=== PATIENT | female | born 1945 | race Caucasian/White ===

== ENCOUNTER 2016-06-17 12:54 | Day surgery (SDC) | payer MEDICARE ==
[2016-06-13 11:52] VITALS: BMI 22.3
[~2016-06-17 12:54] MED LIST: HEPARIN SODIUM,PORCINE 5,000 UNIT/ML 1 ML VIAL SQ ONE; Pre Op ABX Message 1 EACH MISC MISCELLANE ONE
[2016-06-17] MEDS ORDERED: ALPRAZolam 0.25 MG TAB PO PRN (13:05)
[2016-06-17] MEDS ORDERED: HYDROmorphone 1 MG/ML 1 ML SYRINGE IVP PRN (13:05)
[2016-06-17] MEDS ORDERED: DEXAMETHASONE SOD PHOSPHATE 10 MG/ML 1 ML VIAL IV ONE (13:05)
[2016-06-17] MEDS ORDERED: LACTATED RINGERS 1,000 ML IV ONE ×2 (13:15→20:39)
[2016-06-17] MEDS: ONDANSETRON 4 MG/2 ML VIAL IVP ONE ×2 (13:48→20:24)
[2016-06-17 13:52] VITALS: RESP 16
[2016-06-17] MEDS ORDERED: LIDOCAINE 1% INJ 10MG/ML (20 ML MDV) SQ ONE (14:14)
[2016-06-17] MEDS ORDERED: SODIUM BICARB 4% 5 ML VIAL (0.48 MEQ/ML) MISCELLANE ONE (14:14)
[2016-06-17] MEDS ORDERED: METHYLENE BLUE 10 MG/ML 1 ML VIAL IV ONE (14:40)
--- NOTE | 2016-06-17 15:24 | NM ---
EXAMINATION TYPE: NM sentinel node injection DATE OF EXAM: 06/17/2016 2:49 PM COMPARISON: Mammogram 06 June 2016 HISTORY: Left breast cancer TECHNIQUE AND FINDINGS: The procedure of sentinel lymph node injection was explained to the patient. The benefits, alternatives, and risks were discussed. An informed consent was then obtained. Overlying skin is cleaned with sterile alcohol. Lidocaine buffered with bicarbonate was used as anes thetic into the skin and subcutaneous tissue surrounding the nipple. Following this, 535 uCi Tc 99m Filtered Sulfur Colloid was injected into 4 equivalent doses at 12, 3, 6, and 9:00 position surroundi ng the left nipple intradermally. The injection sites were massaged by nuclear equipment research engineer for 10 minutes after injection. T he patient tolerated the procedure well without any immediate complication. The patient was kept in the radiology department for short stay after the procedure and then taken to surgery for surgical pr ocedure what is presumed intraoperative gamma probe will be used for sentinel lymph node detection. IMPRESSION: Left breast radiotracer injection for sentinel node localization as above.
[2016-06-17] MEDS ORDERED: HEPARIN SODIUM,PORCINE 5,000 UNIT/ML 1 ML VIAL SQ ONE (16:53)
[2016-06-17] MEDS ORDERED: PROPOFOL 10 MG/ML 20 ML VIAL IV ONE (17:24)
[2016-06-17] MEDS ORDERED: LIDOCAINE 1% INJ 10MG/ML (20 ML MDV) ONE (17:24)
[2016-06-17] MEDS ORDERED: PHENYLEPHRINE-0.9% NACL SYG 1 MG/10 ML SYRINGE ONE (17:24)
[2016-06-17] MEDS ORDERED: MIDAZOLAM 2 MG/2 ML VIAL ONE (17:24)
[2016-06-17] MEDS ORDERED: ePHEDrine 50 MG/ML 1 ML AMP ONE (17:24)
[2016-06-17] MEDS ORDERED: SUCCINYLCHOLINE CHLORIDE 100 MG/5 ML SYR IV ONE (17:24)
[2016-06-17] MEDS ORDERED: HYDROmorphone (PF) 1 MG/ML ONE (17:24)
[2016-06-17] MEDS ORDERED: fentaNYL (PF) 50 MCG/ML 2 ML AMP ONE (17:24)
[2016-06-17] MEDS ORDERED: METHYLENE BLUE 10 MG/ML 1 ML VIAL INJ ONE (18:04)
--- NOTE | 2016-06-17 19:40 | P.OP ---
Date of Procedure: 06/17/16 Preoperative Diagnosis: Left breast cancer Postoperative Diagnosis: Same Procedure(s) Performed: Lymphatic mapping using methylene blue, left breast lumpectomy with interrogation using margin probe, placement of Bhavya device, left breast sentinel node biopsy of the axilla Anesthesia: RORY Surgeon: Kika Lilly Estimated Blood Loss (ml): 10 IV fluids (ml): 500 Pathology: other (Left breast tissue, left axillary node) Condition: stable Disposition: PACU Indications for Procedure: Left breast cancer Operative Findings: Dense left breast tissue Description of Procedure: Patient was taken to the operating room and following induction of general anesthesia the left breast was prepped and draped in a sterile fashion. Prior to this 5 mL of half-strength methylene blue were injected in the periareolar area and the breast was massaged. The area for lumpectomy was initially approached. Incision was made and carried down to the hook of the wire and surrounding tissue was excised. Specimen radiograph did not reveal the clip and additional tissue was obtained. Following obtaining additional tissue the clip was noted in the specimen. Additionally interrogation of the specimen revealed 1 positive margin laterally will be excision was performed. This was done via margin probe. Following this after we were assured that hemostasis was attained the cavity of the left breast was reapproximated using 3-0 Vicryl suture being careful to maintain the area where the tumor had been and in the tumor bed titanium clips were placed. Additionally a Bhavya balloon catheter was placed. 15 mL of fluid was placed in the Bhavya device secured in the cavity. The anterior tissues were closed with a balloon catheter. The catheter was placed through a separate superior-lateral incision. The axilla was interrogated using the probe. The area of highest activity was chosen to make our incision. Incision was made carried into the axilla. Blue radioactive lymph node was identified. This was removed 10 second count was 18, 904. The second sentinel lymph node was identified and the 10 second count on this node was 2500. Background 10 second count was 14. The sentinel lymph node was sent for evaluation and was noted to be negative on frozen section for cancer. The patient tolerated the procedure in stable condition. All instrument and sponge counts were correct at the end of the case.
--- NOTE | 2016-06-17 19:41 | P.DS ---
Providers Attending physician: Kika Lilly Primary care physician: Carine Peña Plan - Discharge Summary New Discharge Prescriptions: Cephalexin [Keflex] 250 mg PO Q6HR #40 cap HYDROcodone/APAP 5-325MG [[place] 5] 1 - 2 each PO Q4H PRN #20 tab PRN Reason: Pain Discharge Medication List Bimatoprost [Lumigan .01% Ophth Soln] 1 drop BOTH EYES HS 06/13/16 [History] Dorzolamide 2% [Trusopt 2%] 1 drops BOTH EYES BID 06/13/16 [History] FLUoxetine HCL [PROzac] 10 mg PO HS 06/13/16 [History] Lisinopril [Zestril] 10 mg PO QAM 06/13/16 [History] Simvastatin [Zocor] 10 mg PO HS 06/13/16 [History] Cephalexin [Keflex] 250 mg PO Q6HR #40 cap 06/17/16 [Rx] HYDROcodone/APAP 5-325MG [[place] 5] 1 - 2 each PO Q4H PRN #20 tab 06/17/16 [Rx]
--- NOTE | 2016-06-17 19:43 | P.DS ---
Providers Attending physician: Kika Lilly Primary care physician: Carine Peña Plan - Discharge Summary New Discharge Prescriptions: Cephalexin [Keflex] 250 mg PO Q6HR #40 cap HYDROcodone/APAP 5-325MG [[place] 5] 1 - 2 each PO Q4H PRN #20 tab PRN Reason: Pain Discharge Medication List Bimatoprost [Lumigan .01% Ophth Soln] 1 drop BOTH EYES HS 06/13/16 [History] Dorzolamide 2% [Trusopt 2%] 1 drops BOTH EYES BID 06/13/16 [History] FLUoxetine HCL [PROzac] 10 mg PO HS 06/13/16 [History] Lisinopril [Zestril] 10 mg PO QAM 06/13/16 [History] Simvastatin [Zocor] 10 mg PO HS 06/13/16 [History] Cephalexin [Keflex] 250 mg PO Q6HR #40 cap 06/17/16 [Rx] HYDROcodone/APAP 5-325MG [[place] 5] 1 - 2 each PO Q4H PRN #20 tab 06/17/16 [Rx] Follow up Appointment(s)/Referral(s): Kika Lilly MD [STAFF PHYSICIAN] - 3 Days Activity/Diet/Wound Care/Special Instructions: The catheter dressing clean and dry wear Bra at all times Discharge Disposition: HOME SELF-CARE
[2016-06-17 19:58] VITALS: TEMP 98.5
[2016-06-17] MEDS ORDERED: HYDROcodone/APAP 5-325MG 1 EACH TAB PO ONE (21:02)
[2016-06-17 21:28] VITALS: BP 117/59; PULSE 94
--- NOTE | 2016-06-18 09:23 | MM ---
EXAMINATION TYPE: MG pre op needle loc LT, MG surgical specimen LT DATE OF EXAM: 06/17/2016 3:03 PM COMPARISON: Prior mammogram 06 June 2016 CLINICAL HISTORY: Abnormal mammogram, left breast cancer TECHNIQUE: Needle localization with wire placement and surgical excision of area of concern in the left breast. FINDINGS: The procedure of needle localization with wire placement and than surgical excision was explained to the patient. Benefits, alternatives, and risks were discussed. An informed consent was then obtained. The overlying skin was prepped and draped in usual sterile fashion. Lidocaine buffered with bicarbonate was used as anesthetic into the skin and subcutaneous tissue up to the level of area of concern. 20-gauge needle placed under mammographic guidance. Subsequent 90 degrees mammogram show the needle to be in satisfactory position relative to the targeted area. At this point, wire was placed and the needle was withdrawn. The wire was fixed to patient's skin. Images were marked for surgeon. The patient tolerated the procedure well without any immediate complication. The patient was kept in the radiology department for short stay after the procedure and then taken to surgery for surgical excision. Metallic ribbon clip and wire are identified in specimen mammogram. The patient was kept in hospital for short stay after the procedure and then discharged home in stable condition. IMPRESSION: Successful, uncomplicated needle localization with wire placement and surgical excision of breast mass with clip in the left breast, full pathology results to follow. Pathology Results: Malignant A. SENTINEL LYMPH NODE #1, BIOPSY: LYMPH NODE NEGATIVE FOR METASTATIC MALIGNANCY. CK7 AND NEDIA IMMUNOPEROXIDASE STAINS ARE CONFIRMATORY (CONTROLS APPROPRIATE). B. SENTINEL LYMPH NODE #2, BIOPSY: TWO LYMPH NODES NEGATIVE FOR METASTATIC MALIGNANCY. CK7 AND NEIDA IMMUNOPEROXIDASE STAINS PERFORMED ON BLOCKS B1 AND B2 ARE CONFIRMATORY (CONTROLS APPROPRIATE). C. BREAST, LEFT, LUMPECTOMY: EXTENSIVE LOBULAR NEOPLASIA (LCIS AND ALH_. FIBROCYSTIC CHANGES AND AN INTRADUCTAL PAPILLOMA. NO INVASIVE MALIGNANCY IDENTIFIED. D. 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 EXTENSIVE LOBULAR NEOPLASIA (ALH/LCIS). SEE SURGICAL PATHOLOGY CANCER CASE SUMMARY AND COMMENT. Recommendation Appropriate oncologic management. MTDD
== END 2016-06-17 21:46 | disposition home or self-care (01) ==
LOC: OR 12:54
PROVIDERS: ATTEND Surgery
DX: C50.912 Malignant neoplasm of unspecified site of left female breast (principal); R92.8 Other abnormal and inconclusive findings on diagnostic imaging of breast; E78.5 Hyperlipidemia, unspecified; I10 Essential (primary) hypertension; Z79.1 Long term (current) use of non-steroidal anti-inflammatories (NSAID); Z79.899 Other long term (current) drug therapy; Z88.1 Allergy status to other antibiotic agents; Z88.8 Allergy status to other drugs, medicaments and biological substances; Z87.891 Personal history of nicotine dependence
CPT/HCPCS: 19301; 19297; 38525; 88342; 88331; 88332; 88307; 88341; 76098; 19281; 38792; A9541; J2250; J1644; J1100; J2405; J2001; Q9968; J3010; J1170; J2370; J0330; J2704

== ENCOUNTER 2016-07-08 07:18 | Day surgery (SDC) | payer MEDICARE ==
[2016-07-03 15:32] VITALS: BMI 22.1
[~2016-07-08 07:18] MED LIST changes: +LACTATED RINGERS 1,000 ML IV SCH; +MIDAZOLAM 2 MG/2 ML VIAL IV PRN; +ONDANSETRON 4 MG/2 ML VIAL IVP ONE
[2016-07-08] MEDS ORDERED: HEPARIN SODIUM,PORCINE 5,000 UNIT/ML 1 ML VIAL SQ ONE (08:13)
[2016-07-08] MEDS ORDERED: LIDOCAINE 1% 20 ML VIAL (10MG/ML) FOR IV START INTRADERMA ONE (08:19)
[2016-07-08] MEDS ORDERED: MIDAZOLAM 2 MG/2 ML VIAL ONE (08:42)
[2016-07-08] MEDS ORDERED: LIDOCAINE 1% INJ 10MG/ML (20 ML MDV) ONE (08:42)
[2016-07-08] MEDS ORDERED: VECURONIUM 10 MG VIAL IV ONE (08:42)
[2016-07-08] MEDS ORDERED: NEOSTIGMINE 1 MG/ML 10 ML VIAL ONE (08:42)
[2016-07-08] MEDS ORDERED: SUCCINYLCHOLINE CHLORIDE 100 MG/5 ML SYR IV ONE (08:42)
[2016-07-08] MEDS ORDERED: SODIUM CHLORIDE 0.9% 50 ML with ceFAZolin 2,000 MG IV ONE ×2 (08:42)
[2016-07-08] MEDS ORDERED: GLYCOPYRROLATE 0.2 MG/ML 2 ML VIAL ONE (08:42)
[2016-07-08] MEDS ORDERED: PROPOFOL 10 MG/ML 20 ML VIAL IV ONE (08:42)
[2016-07-08] MEDS ORDERED: HYDROmorphone (PF) 1 MG/ML ONE (08:42)
[2016-07-08] MEDS ORDERED: ePHEDrine 50 MG/ML 1 ML AMP ONE (08:42)
[2016-07-08] MEDS ORDERED: fentaNYL (PF) 50 MCG/ML 2 ML AMP ONE (08:42)
[2016-07-08] MEDS ORDERED: LACTATED RINGERS 1,000 ML IV ONE ×2 (09:30→11:23)
[2016-07-08] MEDS ORDERED: NALOXONE 0.4 MG/ML 1 ML VIAL IV PRN (10:26)
[2016-07-08] MEDS ORDERED: ONDANSETRON 4 MG/2 ML VIAL IVP PRN (10:26)
--- NOTE | 2016-07-08 10:26 | P.OP ---
Date of Procedure: 07/08/16 Preoperative Diagnosis: Left breast multifocal disease, breast cancer Postoperative Diagnosis: Same Procedure(s) Performed: Bilateral mastectomy with immediate reconstruction Anesthesia: RORY Surgeon: Kika Lilly Estimated Blood Loss (ml): 20 IV fluids (ml): 1,400 Pathology: other (Bilateral breast) Condition: stable Disposition: PACU Indications for Procedure: Left breast multifocal invasive breast cancer Operative Findings: Bilateral dense breast Description of Procedure: Patient was taken to the operating room and following induction of general anesthesia the right breast was approached initially. A circumareolar incision was made and carried down through the skin and subcutaneous tissue. Circumferential skin flaps were developed. This was performed using the electrocautery device. The LigaSure was utilized as well as necessary to ligate larger vessels. This was carried down to the pectoralis major muscle and laterally down to the axillary contents. After this had been accomplished and we were assured that hemostasis was attained the breast was removed from medial to lateral using the electrocautery device. Any larger perforators were divided using the Harmonic scalpel. Following this the wound was well irrigated. After w were assured hemostasis was attained a pack was placed and the left breast was approached. A circumareolar incision was made and carried down through the skin to the subcutaneous tissue. Again circumferential skin flaps were developed. Hemostasis was attained using electrocautery device as well as the Harmonic scalpel. Dissection was carried down to the pectoralis major muscle and the anterior chest wall. Laterally it was carried to the axilla. After the flaps were developed the breast was removed from medial to lateral being careful to maintain hemostasis using the Harmonic scalpel for any perforators of concern on the area of the chest wall. Dissection was performed to the area of the axilla. After the breast was removed the wound was well irrigated. After we were assured that hemostasis was attained plastic surgery was called in for reconstruction. The specimens were painted appropriately marking there margins. All instrument and sponge counts were correct at the end of the case.
[2016-07-08] MEDS: HYDROmorphone 1 MG/ML 1 ML SYRINGE IVP PRN ×2 (12:30→14:07)
[2016-07-08] MEDS: HYDROmorphone 1 MG/ML 1 ML SYRINGE IV PRN ×2 (17:44→20:45)
[2016-07-08] MEDS: ceFAZolin 1,000 MG in DEXTROSE/WATER 1 50ML.BAG IVPB SCH (18:59)
[2016-07-08] MEDS: TIMOLOL BOTH EYES SCH (19:03)
[2016-07-08] MEDS: LUMIGAN 0.01% BOTH EYES SCH (19:03)
[2016-07-08] MEDS: DORZOLAMIDE BOTH EYES SCH (19:03)
[2016-07-08] MEDS: HEPARIN SODIUM,PORCINE 5,000 UNIT/ML 1 ML VIAL SQ SCH (20:57)
[2016-07-08] MEDS: ATORVASTATIN 10 MG TAB PO SCH (20:59)
[2016-07-08] MEDS ORDERED: DORZOLAMIDE HCL 2% DROPS 10 ML BTL BOTH EYES SCH (21:00)
[2016-07-08] MEDS ORDERED: LATANOPROST 0.005% OPHTH DROPS 2.5 ML BTL BOTH EYES SCH (21:00)
[2016-07-08] MEDS: HYDROcodone/APAP 5-325MG 1 EACH TAB PO PRN (21:08)
[2016-07-09] MEDS: ceFAZolin 1,000 MG in DEXTROSE/WATER 1 50ML.BAG IVPB SCH ×5 (00:10→23:49)
[2016-07-09] MEDS: FLUoxetine HCL 10 MG CAP PO SCH ×2 (00:10→21:38)
[2016-07-09] MEDS: HYDROmorphone 1 MG/ML 1 ML SYRINGE IV PRN ×2 (00:23→05:01)
[2016-07-09] MEDS: HYDROcodone/APAP 5-325MG 1 EACH TAB PO PRN ×2 (01:06→08:16)
--- NOTE | 2016-07-09 06:54 | OP ---
DATE OF SERVICE: 07/08/2016 SURGEON: KATARINA OBRIEN MD SHOT HOLE SHOOTER: PREOPERATIVE DIAGNOSES: 1. Acquired loss right and left breast. 2. Left breast cancer. POSTOPERATIVE DIAGNOSES: 1. Acquired loss right and left breast. 2. Left breast cancer. OPERATION: 1. Immediate reconstruction, right breast following mastectomy with insertion of tissue taper printed circuit layout and subsequent outpatient expansion. 2. Immediate reconstruction of left breast following mastectomy with insertion of tissue taper printed circuit layout and subsequent outpatient expansion. 3. Implantation of reconstructive graft for left and right breast reconstruction. ANESTHESIA: ESTIMATED BLOOD LOSS: SPECIMENS REMOVED: COMPLICATIONS: OPERATIVE FINDINGS: OPERATIVE INDICATIONS: The patient is a 70-year-old female with multifocal left breast cancer to undergo bilateral simple mastectomy. The patient initially underwent lumpectomy margins were is not clear at the time she did undergo sentinel node excision which were negative for cancer. She has decided to proceed with bilateral mastectomy and immediate reconstruction. She was referred to my care for breast reconstructive surgery and understands her options and potential risks and complications associated with today's surgery as well as the fact that future surgery will be required to complete the reconstruction. She has requested I perform the surgery. OPERATIVE PROCEDURE SUMMARY: The patient was transported to the operating room where she was placed in the supine position. Following induction of general endotracheal anesthesia, the patient was prepped and draped in the usual fashion. All surgery performed under loupe magnification. Dr. Lilly and her surgical team proceeded with the right and left simple mastectomy procedures. Once this was completed, I was contacted to come to the operating room. The patient was in supine position. All sponge and needle counts from the prior procedure were correct. New instruments were obtained. The patient's left open mastectomy wound was slightly larger than the right as a larger area of the tissue was excised for the circumareolar mastectomy due to her prior surgery. Otherwise conditions appear the same on both sides. There was no active bleeding. Both pectoralis major muscles appeared healthy. Beginning on the left side, the pectoralis major muscle was identified where it joined the chest wall laterally with areolar connective tissue divided with cauterization allowing entry into the potential plane between the pectoralis major and minor muscles, which was bluntly developed. Medial attachment fibers of the pectoralis major muscle to ribs were released with cautery but not sternal. Inferiorly all pectoralis major muscle fiber attachments to the ribs were released to obtain sufficient submuscular coverage required recruitment of additional muscle tissue. Inferior medially, rectus abdominis muscle and fascia, inferior laterally external abdominal oblique muscle and fascia, and laterally serratus anterior muscle and fascia were all elevated with cauterization through this incision. Once a sufficient size submuscular reconstructive pocket was created, irrigation was performed. Hemostasis was noted to be excellent. The site was packed open with moist laparotomy pads. Attention was turned towards the right side, again identifying the pectoralis major muscle where it joined the chest wall on the right lateral aspect. Loose areolar connective tissue divided with cautery allowing entry into the potential plane between the pectoralis major and minor muscles. This potential plane was bluntly dissected. Medial attachment fibers of the pectoralis major muscle to ribs were released with cautery but not sternal attachments. Inferiorly all rib attachments of the pectoralis major muscle were released again for a sufficient submuscular coverage of the taper printed circuit layout. Required recruitment of additional muscle tissue, inferior medially rectus abdominis muscle and fascia, inferolaterally external abdominal oblique muscle and fascia, and laterally serratus anterior muscle and fascia were all elevated until reaching a sufficient size submuscular pocket in symmetrical fashion to the left side. Irrigation was performed. Hemostasis was excellent. Both cavities were closely inspected. Minor adjustments made for symmetry purposes. Measurements were obtained. Gloves now changed. The left-sided tissue taper printed circuit layout opened onto the field first from the [employer], reference # [id number] and serial #[id number]. The taper printed circuit layout was only handled by the surgeon. After irrigating with saline, all air was removed from the taper printed circuit layout, and 50 mL of 0.9 normal saline instilled. It was inserted in the reconstructive cavity. Proper orientation assured under direct vision. The right-sided taper printed circuit layout now opened on the field. Again, same reference number. The serial number for the right-sided device was [id number]. Again the taper printed circuit layout was only handled by the surgeon. After it was irrigated with saline, all air was removed and 50 mL of 0.9 normal saline instilled. It was inserted in the reconstructive submuscular pocket created. Orientation assured under direct vision. The placements appeared symmetrical. The muscle tissue could not be directly approximated over either taper printed circuit layout without significant tension. Therefore, SurgiMend reconstructive graft measuring 10 x 15 cm thin and fenestrated was opened on the field. The SurgiMend once revitalized with room temperature saline was divided in 2 equal portions and placed deep to the muscle flap tissue on the right and left sides spanning the area where the muscle flap could not be directly approximated. The muscle flap and SurgiMend were then inset into each other using interrupted 3-0 Vicryl sutures. Complete coverage of each taper printed circuit layout was now obtained. Irrigation was performed. Hemostasis remained excellent. Adalid-Montero drains 19 round were now inserted into the surgical field in right and left side brought through separate stab incisions and right and left anterolateral chest wall sutured in place with 2-0 Prolene. Drains were cut to appropriate length. The mastectomy circumareolar incisions were now closed in a pursestring fashion using deep dermal 2-0 Prolene pursestring followed by finer approximation in the deep dermis using inverted, interrupted 4-0 Monocryl and then completing the skin closure with interrupted rd. Drains were connected to closed bulb suction and patent. The patient's surgical field was cleansed with saline and dried. Postoperative bandages placed using 4 x 4's, secured with ( ) Medipore tape. She was then extubated in the operating room and transferred to the recovery room in good condition with stable vital signs. There were no complications.
[2016-07-09] MEDS: TIMOLOL BOTH EYES SCH ×2 (08:14→21:36)
[2016-07-09] MEDS: DORZOLAMIDE BOTH EYES SCH ×2 (08:14→21:36)
[2016-07-09] MEDS: PANTOPRAZOLE 40 MG/10 ML VIAL IV SCH (08:24)
[2016-07-09] MEDS: HEPARIN SODIUM,PORCINE 5,000 UNIT/ML 1 ML VIAL SQ SCH ×2 (08:28→21:36)
[2016-07-09] MEDS: LISINOPRIL 10 MG TAB PO SCH (09:00)
--- NOTE | 2016-07-09 10:32 | CONS ---
DATE OF CONSULTATION: 07/08/2016 REASON FOR CONSULTATION: Medical management requested by Dr. Rosie Lilly. CONSULTATION: This is a 70-year-old patient of Dr. Carine Peña. Patient was found to have normal mammogram and more details in Dr. oRsie Cano's notes. Patient underwent a bilateral mastectomy. Patient has some pain at operative site. Patient's chronic medical conditions include hyperlipidemia, hypertension, anxiety. Post procedure, lying in bed. No nausea. Did tolerate her meals. REVIEW OF SYSTEMS: CONSTITUTIONAL: None. HEENT: None. RESPIRATORY: None. CARDIOVASCULAR: None. GASTROINTESTINAL: None. GENITOURINARY: None. MUSCULOSKELETAL: None. DERMATOLOGICAL: Some pain at operative site. LYMPHATICS: None. PSYCHIATRY: Anxiety. NEUROLOGICAL: None. Past history of breast cancer, hyperlipidemia, hypertension, glaucoma. PAST SURGICAL HISTORY: Bilateral cataract, abdominoplasty, left breast lumpectomy with a VICTORIA device insertion, right knee scope. Past psych history of anxiety. SOCIAL HISTORY: The patient does not smoke. Alcohol occasionally. . Family history of dementia. HOME MEDICATIONS: 1. Lisinopril 10 mg a day. 2. [place] 5, 1 to 2 tablets q.4 p.r.n. 3. Prozac 10 mg p.o. q.h.s. 4. Trusopt 2% 1 drop to both eyes b.i.d. 5. Lumigan 0.01% 1 drop to both eyes q.h.s. 6. Zocor 10 mg q.h.s. ALLERGIES: ERYTHROMYCIN. On examination, temperature 97.6, pulse 80, respirations 16, blood pressure 124/86, pulse ox 98% on room air. GENERAL APPEARANCE: Elderly lady lying in bed, not in distress. EYES: Pupils equal. Conjunctivae normal. HEENT: Oral cavity normal. NECK: JVD not raised. Mass not palpable. RESPIRATORY: Lungs: Fair air entry. CARDIOVASCULAR: First and second sounds normal. No edema. ABDOMEN: Soft, nontender. Liver and spleen not palpable. LYMPHATIC: No lymph nodes palpable in neck or axillae. PSYCHIATRIC: Alert and oriented x3. Mood is anxious-appearing. NEUROLOGICAL: Pupils equal. Cranial nerves grossly intact. Power and sensation grossly intact. INVESTIGATIONS: No blood work. ASSESSMENT: 1. Bilateral mastectomy for breast cancer. 2. Hyperlipidemia. 3. Essential hypertension. 4. Anxiety, not otherwise specified. PLAN: The patient has Venodyne boots for DVT prophylaxis. The patient's Zestril, Prozac, eye drops, Zocor will be resumed. Pain control per Dr. Rosie Lilly. Care was discussed with the patient. Thank you, Dr. Rosie Lilly.
--- NOTE | 2016-07-09 11:53 | P.PN ---
Subjective 70-year-old female being seen with the surgical service. Patient is postop done on July 08 bilateral mastectomy with tissue expanders placed for left breast cancer. Patient underwent the implantation of reconstructive grafts for the left and right breast reconstruction secondary to the left breast cancer. This morning patient has bilateral drains and right and left breasts. The right breast scant amount of drainage noted from the Adalid-Montero drain. The left breast proximally 30 mL noted in the bulb. The surgeon did remove the surgical dressing at the bedside. No redness noted suture line well approximated. Patient is experiencing slight surgical tenderness. Patient states that she was given IV pain medication made patient nauseated dizzy lightheaded. Patient states she cannot tolerate pain medication plan Tylenol usually is effective for pain control. Did note the systolic blood pressure at 4:00 in the morning 93/56. Recheck at 9 this morning 102/63. Patient's home dose of lisinopril 10 mg daily has been held with parameters to continue to hold for systolic blood pressures less than 110. Spouse at bedside surgeon did answer questions with the spouse and the patient discuss the plan of care Objective - Vital Signs Vital signs: Vital Signs Temp 97.9 F 07/09/16 08:55 Pulse 77 07/09/16 08:55 Resp 20 07/09/16 08:55 BP 102/63 07/09/16 08:55 Pulse Ox 97 07/09/16 08:55 Intake & Output 07/08/16 07/09/16 07/09/16 18:59 06:59 18:59 Intake Total 2750 240 Output Total 400 80 Balance 2350 160 Intake: IV 2750 Oral 240 Output: Drainage 90 80 LEFT FARAZ DRAIN 40 50 R FARAZ DRAIN 50 30 Urine 200 Estimated Blood Loss 110 Other: # Emeses 1 - Exam GENERAL APPEARANCE: 70-year-old female patient is alert, oriented, in no acute distress. Pleasant cooperative resting in bed denying any dizziness or lightheadedness patient reports not ready to be discharged patient had a large emesis this morning still feeling queasy with generalized fatigue VITAL SIGNS: Reviewed HEENT: Head is normocephalic and atraumatic. Pupils are equal and reactive. The nares are patent. Oropharynx is clear without lesions. Chest bilateral dressings at the mastectomy site dry no redness at the surgical sites. Bilateral Adalid-Montero drains in place NECK: Supple without lymphadenopathy. Traches midline. HEART: S1, S2. Regular rate and rhythm. No murmur noted denying chest pain LUNGS: No crackles or wheezes are heard. On room air sats are 97% ABDOMEN: Soft, nontender, nondistended with good bowel sounds. No peritoneal signs. No palpable organomegaly or masses. Reports a sensation of nausea no further active emesis EXTREMITIES: Normal skin color and turgor. No cyanosis, rash, ulceration, clubbing or edema. Radial pedal pulses are 2/4 bilaterally. NEUROLOGICAL: No focal deficits. Strength and sensation are grossly intact. Assessment and Plan Plan: Impression Status post June bilateral mastectomy for left breast cancer Anxiety disorder nonspecified Hyperlipidemia Hypertension essential controlled Plan Continue postop surgical care Monitor blood pressure address as indicated Continue IV hydration stop IV pain medication secondary to a side affect of nausea with an emesis after administration of IV pain meds Use plain Tylenol for pain control Restart home meds as appropriate Antiemetics as ordered Casmisole to be ordered and applied Prepped for probable discharge in the next 24 hours The above dictated assessment and findings were discussed with Dr. Kika Cano. Impression and the plan of care have been dictated as directed. Donita Silva nurse practitioner acting as a scribe for Dr. Chawla
[2016-07-09] MEDS: ACETAMINOPHEN TAB 325 MG TAB PO PRN ×3 (12:12→23:49)
[2016-07-09] MEDS ORDERED: traMADol 50 MG TAB PO PRN (13:23)
[2016-07-09] MEDS: DEXTROSE 5%-0.45% NACL 1,000 ML IV SCH ×2 (14:50→16:15)
--- NOTE | 2016-07-09 17:18 | PN ---
DATE OF SERVICE: 07/09/2016 PRESENTING COMPLAINT: Bilateral mastectomy. INTERVAL HISTORY: Patient is status post bilateral mastectomy. Did vomit once today. Feeling weak. Overall feeling better. Otherwise, she states pain is better controlled. No chest pain or shortness of breath. Review of systems done for constitutional, cardiovascular, GI, pulmonary; relevant findings as above. Current medications are reviewed. On examination, temperature 97.9, pulse 77, respirations 20, blood pressure 102/63, pulse ox 97% on room air. GENERAL APPEARANCE: Lying in bed, comfortable. EYES: Pupils equal. Conjunctivae normal. NECK: JVD not raised. Mass not palpable. RESPIRATORY: Effort normal. Lungs are clear. CARDIOVASCULAR: First and second sounds normal. No edema. ABDOMEN: Soft, non-tender. Liver and spleen not palpable. Chest wall dressing in place. INVESTIGATIONS: No lab work today. ASSESSMENT: 1. Bilateral mastectomy for breast cancer. 2. Hyperlipidemia. 3. Essential hypertension. 4. Anxiety not otherwise specified. PLAN: Patient is doing better, probably ( ) from effect of pain medication. Care was discussed with the patient. Will follow.
[2016-07-09] MEDS: LUMIGAN 0.01% BOTH EYES SCH (21:36)
[2016-07-09] MEDS: ATORVASTATIN 10 MG TAB PO SCH (21:38)
[2016-07-10 02:44] VITALS: RESP 18
[2016-07-10 05:26] VITALS: PULSE 75
[2016-07-10] MEDS: ceFAZolin 1,000 MG in DEXTROSE/WATER 1 50ML.BAG IVPB SCH (06:11)
[2016-07-10] MEDS: ACETAMINOPHEN TAB 325 MG TAB PO PRN (06:22)
[2016-07-10 08:13] LABS: Basophils % (A) 0 %; CH 30.6; CHCM 32.3; Eosinophils # (A) 0.1 k/uL (0-0.7); Eosinophils % (A) 1 %; HCT 32.7 % (34.0-46.0); HDW 2.17; HGB 10.5 gm/dL (11.4-16.0); Luc # (Auto) 0.08; Luc % (Auto) 1; Lymphocytes # (A) 1.1 k/uL (1.0-4.8); Lymphocytes % (A) 19 %; MCH 30.6 pg (25.0-35.0); MCHC 32.2 g/dL (31.0-37.0); MCV 95.2 fL (80.0-100.0); Mean Platelet Volume 7.5; Monocytes # (A) 0.5 k/uL (0-1.0); Monocytes % (A) 8 %; Neutrophils # (A) 3.9 k/uL (1.3-7.7); Neutrophils % (A) 70 %; RBC 3.44 m/uL (3.80-5.40); RDW 12.8 % (11.5-15.5); WBC 5.6 k/uL (3.8-10.6); WBC (Perox) 6.09
[2016-07-10 08:28] LABS: Anion Gap 7 mmol/L; Blood Urea Nitrogen 6 mg/dL (7-17); Calcium 8.4 mg/dL (8.4-10.2); Carbon Dioxide 25 mmol/L (22-30); Chloride 106 mmol/L (98-107); Glucose 103 mg/dL (74-99); Non-African American GFR(MDRD) >60 (>60 ml/min/1.73 sqM); Potassium 4.3 mmol/L (3.5-5.1); Sodium 138 mmol/L (137-145)
[2016-07-10 08:42] VITALS: BP 131/73; TEMP 97.9
[2016-07-10] MEDS: DEXTROSE 5%-0.45% NACL 1,000 ML IV SCH ×2 (08:42→08:47)
[2016-07-10] MEDS: TIMOLOL BOTH EYES SCH (08:46)
[2016-07-10] MEDS: DORZOLAMIDE BOTH EYES SCH (08:46)
[2016-07-10] MEDS: PANTOPRAZOLE 40 MG/10 ML VIAL IV SCH (08:47)
[2016-07-10] MEDS: LISINOPRIL 10 MG TAB PO SCH (08:47)
[2016-07-10] MEDS: HEPARIN SODIUM,PORCINE 5,000 UNIT/ML 1 ML VIAL SQ SCH (09:07)
--- NOTE | 2016-07-10 09:49 | P.DS ---
Providers Expected date of discharge: 07/10/16 Attending physician: Kika Lilly Consults: 07/08/16 10:29 Consult Physician Routine Consulting Provider: Nicolas Schulz Consult Reason/Comments: medical managment Do you want consulting provider notified?: Yes Primary care physician: Carine Mukherjee [facility] Course: 70-year-old female who was admitted on elective basis to undergo bilateral mastectomy with tissue expanders left for breast cancer done on 07/08/2016 . Patient underwent the implantation of reconstructive grafts for the left and right breast reconstruction secondary to the left breast cancer. This morning patient has bilateral drains and right and left breasts. The right breast scant amount of drainage noted from the Adalid-Montero drain. The left breast proximally 30 mL noted in the bulb. Postprocedure patient did develop an episode of nausea with vomiting felt to be due to the pain medication patient was receiving IV dilaudid which was stopped. Patient tolerated plain Tylenol which was effective for pain control the were no further episodes of nausea vomiting. Additionally post procedure patient's systolic blood pressure was in the 90s. Patient was rehydrated and the NAIMA inhibitor lisinopril was stopped this will be restarted home dose in the home setting at the time of discharge. The patient was seen in the morning of discharge by the surgeon at the bedside this decision was to leave the bilateral drains in place keep scheduled appointment with the surgeon and the plastic surgeon as scheduled Impression discharge diagnosis Status post June bilateral mastectomy for left breast cancer Anxiety disorder nonspecified Hyperlipidemia Hypertension essential controlled The above dictated assessment and findings were discussed with dr Radha Cano Impression and the plan of care have been dictated as directed. Donita Silva nurse practitioner acting as a scribe for Dr. Chawla Plan - Discharge Summary Discharge Medication List Bimatoprost [Lumigan .01% Ophth Soln] 1 drop BOTH EYES HS 06/13/16 [History] Dorzolamide 2% [Trusopt 2%] 1 drops BOTH EYES BID 06/13/16 [History] FLUoxetine HCL [PROzac] 10 mg PO HS 06/13/16 [History] Lisinopril [Zestril] 10 mg PO QAM 06/13/16 [History] Simvastatin [Zocor] 10 mg PO HS 06/13/16 [History] HYDROcodone/APAP 5-325MG [[place] 5-325] 1 - 2 each PO Q4H PRN #20 tab 06/17/16 [ Rx] Acetaminophen Tab [Tylenol] 650 mg PO Q4HR PRN #0 tab 07/10/16 [Rx] Follow up Appointment(s)/Referral(s): Sang Fuller MD [STAFF PHYSICIAN] - 07/18/16 11:45 am Kika Lilly MD [STAFF PHYSICIAN] - 07/17/16 9:45 am Activity/Diet/Wound Care/Special Instructions: Keep the bilateral Adalid-Montero drains in place until seen in follow-up visit with Dr. Cano in the office next or Thursday Discharge Disposition: HOME SELF-CARE
--- NOTE | 2016-07-25 19:49 | PCN ---
DATE OF PROCEDURE: 07/08/2016 ADDENDUM: Please note that the patient underwent a bilateral mastectomy with immediate reconstruction. NATUROPATHIC PHYSICIAN: Iesha Gardiner
--- NOTE | 2016-08-01 21:28 | OP ---
DATE OF SERVICE: SURGEON: HOLLY GAYTAN MD APPAREL PATTERNMAKER: PREOPERATIVE DIAGNOSIS: POSTOPERATIVE DIAGNOSIS: OPERATION: Bilateral mastectomy with immediate reconstruction. ANESTHESIA: ESTIMATED BLOOD LOSS: SPECIMENS REMOVED: COMPLICATIONS: OPERATIVE FINDINGS: Please note that the during the procedure computer assistant was Iesha Gardiner.
== END 2016-07-10 10:34 | disposition home or self-care (01) ==
LOC: OR 07:18 → 6PED 11:36 → OR 07-10 10:34
PROVIDERS: ATTEND Surgery
DX: C50.912 Malignant neoplasm of unspecified site of left female breast (principal); N62 Hypertrophy of breast; D05.01 Lobular carcinoma in situ of right breast; N60.12 Diffuse cystic mastopathy of left breast; N60.11 Diffuse cystic mastopathy of right breast; D24.1 Benign neoplasm of right breast; N60.21 Fibroadenosis of right breast; L73.9 Follicular disorder, unspecified; T81.89XA Other complications of procedures, not elsewhere classified, initial encounter; R11.2 Nausea with vomiting, unspecified; F41.9 Anxiety disorder, unspecified; E78.5 Hyperlipidemia, unspecified; I10 Essential (primary) hypertension; R92.8 Other abnormal and inconclusive findings on diagnostic imaging of breast; M19.90 Unspecified osteoarthritis, unspecified site; Z79.1 Long term (current) use of non-steroidal anti-inflammatories (NSAID); Z79.891 Long term (current) use of opiate analgesic; Z79.899 Other long term (current) drug therapy; Z88.1 Allergy status to other antibiotic agents; Z88.8 Allergy status to other drugs, medicaments and biological substances; Z87.891 Personal history of nicotine dependence
CPT/HCPCS: 80048; 85025; 88342; 88307; 19303; 19357; 15777; C1789; C1763; J2250; J1644 ×3; J2710; J2405 ×2; J2001; J3010; J1170 ×2; J0690 ×3; J0330; J2704; C9113 ×2

== ENCOUNTER 2017-02-25 11:41 | Day surgery (SDC) | payer MEDICARE ==
[2017-02-23 15:03] VITALS: BMI 22.3
[~2017-02-25 11:41] MED LIST changes: +DEXAMETHASONE SOD PHOSPHATE 10 MG/ML 1 ML VIAL IV ONE; -HEPARIN SODIUM,PORCINE 5,000 UNIT/ML 1 ML VIAL SQ ONE; +HYDROmorphone 1 MG/ML 1 ML SYRINGE IVP PRN; -MIDAZOLAM 2 MG/2 ML VIAL IV PRN; -Pre Op ABX Message 1 EACH MISC MISCELLANE ONE; +ceFAZolin 2 GM in SODIUM CHLORIDE 0.9% 100 ML IVPB ONE
[2017-02-25] MEDS ORDERED: LIDOCAINE 1% 20 ML VIAL (10MG/ML) FOR IV START INTRADERMA ONE (12:10)
[2017-02-25] MEDS ORDERED: MIDAZOLAM 2 MG/2 ML VIAL ONE (12:23)
[2017-02-25] MEDS ORDERED: ePHEDrine SULFATE/0.9% NACL/PF 50 MG/5 ML SYRINGE IV ONE (12:23)
[2017-02-25] MEDS ORDERED: LIDOCAINE 1% INJ 10MG/ML (20 ML MDV) ONE (12:23)
[2017-02-25] MEDS ORDERED: SUCCINYLCHOLINE CHLORIDE 100 MG/5 ML SYR IV ONE (12:23)
[2017-02-25] MEDS ORDERED: PROPOFOL 10 MG/ML 20 ML VIAL IV ONE (12:23)
[2017-02-25] MEDS ORDERED: PHENYLEPHRINE-0.9% NACL SYG 1 MG/10 ML SYRINGE ONE (12:23)
[2017-02-25] MEDS ORDERED: HYDROmorphone (PF) 1 MG/ML ONE (12:23)
[2017-02-25] MEDS ORDERED: fentaNYL (PF) 50 MCG/ML 2 ML AMP ONE (12:23)
[2017-02-25 14:54] VITALS: TEMP 97
[2017-02-25] MEDS ORDERED: IV FLUID CONTINUATION 1,000 ML IV ONE (15:36)
[2017-02-25 15:44] VITALS: RESP 18
[2017-02-25] MEDS ORDERED: Acetaminophen-Codeine 300-30mg TAB PO ONE (16:04)
[2017-02-25 17:13] VITALS: BP 123/77; PULSE 88
--- NOTE | 2017-02-25 20:40 | OP ---
OPERATIVE REPORT DATE OF SURGERY: February 25, 2017. PREOPERATIVE DIAGNOSES: 1. Acquired loss of right and left breast. 2. Personal history of bilateral mastectomy. 3. Personal history of breast cancer. 4. Acquired loss right and left breast inframammary folds. 5. Acquired deformity of right and left reconstructed breasts. POSTOPERATIVE DIAGNOSES: 1. Acquired loss of right and left breasts. 2. Personal history of breast cancer. 3. Personal history of bilateral mastectomy. 4. Acquired loss right and left inframammary fold. 5. Acquired deformity of right and left reconstructed breast. OPERATIVE PROCEDURES: 1. Replace right breast tissue underground heavy equipment operator with silicone breast implant for right breast reconstruction. 2. Revised right reconstructed breast. 3. Replace left reconstructed breast tissue underground heavy equipment operator with silicone breast implant for left breast reconstruction. 4. Revision of left reconstructed breast. 5. Reconstruction right left inframammary folds via local advancement flaps, 60 square cm. 6. Implantation of reconstructive graft for right and left breast reconstruction, 300 square cm. OPERATIVE INDICATIONS: The patient is a 71-year-old female, who has undergone bilateral mastectomy for treatment of breast cancer with immediate reconstruction at the time via tissue underground heavy equipment operator technique. She is here for a second stage tissue underground heavy equipment operator reconstruction. She has completed outpatient expansion after placement of expanders and has done well. There were significant asymmetries between right and left reconstructed breast and contour irregularities caused by the mastectomy scar and healing processes. In addition the patient has effaced right and left inframammary folds. She understands today's surgery has potential risks and complications, including, but not limited to, wound healing problems, infection, seroma, hematoma, asymmetries and the potential need for future reconstructive surgery to obtain a final result. She has requested I perform the surgery. OPERATIVE PROCEDURE SUMMARY: The patient is seen in the presurgical area. Markings made. Procedure reviewed. All questions answered. She was then transported to the operating room, where she was placed in supine position following induction general tracheal anesthesia. Patient prepped and draped in the usual fashion. All surgery was performed under magnification. The patients left and right mastectomy scar sites were identified. The left side was wide irregular and outlined in curvilinear elliptical fashion. The right-sided scar had less irregularity and was diagrammed in the more transverse horizontal fashion. Beginning on the right side, incision made. Following diagram placed. Dividing skin in full-thickness fashion and using the scalpel to dissect through subcutaneous tissue and scar layer identifying the muscle fascial layer. Cauterization was then used to elevate skin subcutaneous tissue off the muscle fascial layer. Extensive dissection was required to release contour irregularities and allow for optimal skin draping after the placement of the implant. The dissection was performed with cautery. Hemostasis maintained with cautery. Extensive dissection was required. Once completed , a transverse incision was made through the muscle flap layer along the middle one third of the lower reconstructive breast area exposing the underground heavy equipment operator. The underground heavy equipment operator was removed intact. The cavity was irrigated. There was no granulation tissue. No exudate is noted. The capsulotomy incision was now made using cauterization first circumferentially where the capsule joined the chest wall and multiple cruciate incisions through the capsular tissue underground heavy equipment operator structure to release this. Inferiorly dissection was then performed for a creation of inframammary fold. It measured 15 cm transversely by 2 cm vertically. This fold was created from skin and subcutaneous tissue, dissected with cauterization and then the fold was advanced in a cephalad fashion. Secured to the chest wall. Periosteum rib structures several discrete locations using interrupted 0 and 2-0 Vicryl sutures. The cavity was irrigated. Hemostasis was excellent and packed open with moist laparotomy sponges. Attention is turned to left side. A curvilinear elliptical incision was made. Following diagram place, sending excised scar tissue to pathology. The remaining tissue was divided with cautery until reaching the muscle fascial layer, skin and subcutaneous tissue flaps were then elevated off the muscle fascia. Extensive dissection was required to release contour irregularities and allow for optimal skin draping after placement of the implant. Once this was completed, a transverse incision was made through the muscle flap layer in the middle of the lower one third of the reconstructed breast. Exposing the underground heavy equipment operator, the underground heavy equipment operator was removed intact. The cavity appeared normal. No granulation tissue. No exudates. Cavity was irrigated and complete capsulotomy incision was made where the capsule joined the chest wall circumferentially with cautery and then multiple cruciate incisions through the capsular structure were made with cauterization released the tightness of the structure inferiorly through the lower capsulotomy incision the skin subcutaneous tissue flap was elevated for reconstruction of inframammary fold. Dissection was performed with cauterization of the flap measured 15 cm transversely by 2 cm vertically once created it was advanced in a cephalad fashion and secured to the chest wall. Periosteal rib structure using several interrupted 0 and 2-0 Vicryl sutures creating a discrete inframammary fold in a symmetrical location to the right side. Irrigation was performed. Hemostasis was excellent. Temporary breast implant sizer was open on the field. Several sizes were tried. Ultimately 400 mL Sizer appeared optimal on each side. However the patient's muscle flap tissue did require additional dissection revision for the right and left side to accommodate this implant and look appropriate. Once this was completed, additional irrigation was performed. Hemostasis was excellent. Gloves were now changed. The left-sided breast implant was opened first again the implants from the [employer]. Silicone smooth round high-profile gel implant, reference #[id number] BC serial number for the left-sided implant was [id number]. Device was only handled by surgeon after obtaining new gloves and irrigated with saline inserted in reconstructive cavity. The muscle flap tissue could not close over the implant without causing increasing. SurgiMend was now opened on the field. This required temporary explantation implant placed in its sterile container with saline solution. The SurgiMend was sutured to just above the inframammary fold region using interrupted 3-0 Vicryl. The implant was now returned to the reconstructive cavity. The SurgiMend was oriented in inferior pole location advanced over the implant and then the muscle flap tissue advance over the implant and SurgiMend. The SurgiMend muscle flap tissue were inset using interrupted 3-0 Vicryl suture providing complete coverage. The attention was turned towards the right side. Again gloves were changed. A second piece of SurgiMend measuring 10 x 15 cm. Then a fenestrated was opened on the field. Once revitalized and room temperature saline this piece was now secured just above the inframammary fold with interrupted 3-0 Vicryl sutures. The second implant opened on the field. It was again same size as the first. Reference #[id number] and serial number for the right-sided device [id number]. Devices was only handled by surgeon irrigated saline. Implant was inserted in the reconstructive cavity. SurgiMend advanced over the implant and is located in the inferior sling type orientation and then the muscle flap tissue advanced over the implant and SurgiMend and secured and then inset to the SurgiMend using interrupted 3-0 Vicryl suture. Complete coverage was obtained. The skin incision on each side was now closed approximating deep layers using inverted interrupted 4-0 Monocryl followed by closure of the skin incision on each side of the superficial dermal and epidermal layers using a running 5-0 Prolene. Surgical nina cleansed with saline, dried, and postoperative bandages placed using sterile 1 inch paper tape. A 4 x 4, secured with paper tape. Position size 2 mammary support with position gauze padding on the lateral aspect of each reconstructed breast. The patient was then awakened from anesthetic, extubated and transferred to recovery room in good condition. Stable vital signs. There were no complications. MMODL / IJN: [id number] /
== END 2017-02-25 17:25 | disposition home or self-care (01) ==
LOC: OR 11:41
PROVIDERS: ATTEND Plastic Surgery
DX: Z42.1 Encounter for breast reconstruction following mastectomy (principal); Z85.3 Personal history of malignant neoplasm of breast; N60.19 Diffuse cystic mastopathy of unspecified breast; N61.0 Mastitis without abscess; Z87.891 Personal history of nicotine dependence; I10 Essential (primary) hypertension; E78.5 Hyperlipidemia, unspecified; Z79.899 Other long term (current) drug therapy; Z88.1 Allergy status to other antibiotic agents
CPT/HCPCS: 88305; 11970; 15777; C1789; C1763; J2250; J1100; J0690; J2405; J2001; J3010; J1170; J2370; J0330; J2704

== ENCOUNTER 2017-11-04 07:48 | Day surgery (SDC) | payer MEDICARE ==
[2017-10-29 10:31] VITALS: BMI 22.8
[~2017-11-04 07:48] MED LIST changes: -HYDROmorphone 1 MG/ML 1 ML SYRINGE IVP PRN; +LIDOCAINE 1% 20 ML VIAL (10MG/ML) FOR IV START INTRADERMA PRN; +MORPHINE SULFATE 4 MG/ML SYRINGE IV PRN; +Pre Op ABX Message 1 EACH MISC MISCELLANE ONE; -ceFAZolin 2 GM in SODIUM CHLORIDE 0.9% 100 ML IVPB ONE
[2017-11-04] MEDS ORDERED: fentaNYL (PF) 50 MCG/ML 2 ML AMP ONE (09:56)
[2017-11-04] MEDS ORDERED: LIDOCAINE 1% INJ 10MG/ML (20 ML MDV) ONE (09:56)
[2017-11-04] MEDS ORDERED: SUCCINYLCHOLINE CHLORIDE 100 MG/5 ML SYR IV ONE (09:56)
[2017-11-04] MEDS ORDERED: MIDAZOLAM 2 MG/2 ML VIAL ONE (09:56)
[2017-11-04] MEDS ORDERED: PROPOFOL 10 MG/ML 20 ML VIAL IV ONE (09:56)
[2017-11-04] MEDS ORDERED: ONDANSETRON 4 MG/2 ML VIAL ONE (09:56)
[2017-11-04] MEDS ORDERED: PHENYLEPHRINE-0.9% NACL SYG 1 MG/10 ML SYRINGE ONE (09:56)
[2017-11-04] MEDS ORDERED: GLYCOPYRROLATE 0.2 MG/ML 2 ML VIAL ONE (09:56)
[2017-11-04] MEDS ORDERED: SODIUM CHLORIDE 0.9% 50 ML with ceFAZolin 1,000 MG IV ONE ×2 (10:07)
[2017-11-04] MEDS ORDERED: BACITRACIN 500 UNIT/GM OINT 28.4 GM TUBE TOPICAL ONE (11:00)
[2017-11-04 11:22] VITALS: TEMP 97.2
[2017-11-04 11:51] VITALS: RESP 18
[2017-11-04 12:16] VITALS: BP 133/66; PULSE 64
--- NOTE | 2017-11-05 09:02 | OP ---
OPERATIVE REPORT DATE OF SURGERY: 11/04/2017. SURGEON: Sang Fuller MD PREOPERATIVE DIAGNOSES: 1. 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 2. Personal history of breast cancer. 3. Personal history of bilateral mastectomy. POSTOPERATIVE DIAGNOSES: 1. 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 2. Personal history of breast cancer. 3. Personal history of bilateral mastectomy. OPERATIVE PROCEDURE: 1. Right nipple areolar reconstruction. 2. Left nipple areolar reconstruction. 3. Implantation of reconstructive graft for right and left nipple reconstruction. OPERATIVE INDICATIONS: The patient is a 71-year-old female who has undergone bilateral mastectomy for treatment of breast cancer with immediate reconstruction via tissue smoking pipe mounter technique. She has completed subsequent expansion and replacement of her tissue expanders with implants and has done well. Completed her surgery in the fall of 2016 and then went to [place] and is now back in the [place] area. She desires to proceed with nipple reconstruction. She understands potential risks and complications related to the surgery including wound healing problems, necrosis of the nipple-areola flaps and even potential risk of loss of her reconstructive sites. She has requested I perform the surgery. OPERATIVE PROCEDURE SUMMARY: The patient was seen presurgical area, markings made, procedure reviewed, all questions answered. She was transported to the operating room where she was placed in supine position. Following induction of general endotracheal anesthesia, the patient was prepped and draped in usual fashion. The right and left nipple C-V flaps were now drawn. Once this was completed, beginning on the right side, incision made for flap elevation using a 10-blade scalpel divided the skin in full-thickness fashion and then dissecting the C-V flaps from distal to proximal maintaining and increasing thickening subcutaneous on the C-V flap. This dissection was performed with 10-blade scalpel. Hemostasis maintained with pressure and minimal use of cautery. The same step was now completed on the left side, elevating the left-sided C-V flap. The flaps appeared viable, healthy, although bleeding from cut dermal surfaces was noted, there was no significant other bleeding. The donor region for each flap was now developed by dissection with a 10-blade scalpel to decrease tension on the skin subcutaneous tissue. The dissection once completed, hemostasis maintained with cautery on the right and left side. The SurgiMend reconstructive graft measuring 10 x 15 cm was opened onto the field as this was the only graft size available. The graft was cut into 1 cm strips. Two 1 cm strips were then rolled in the form of a cylinder and secured using interrupted 3-0 Prolene so they maintained a tight cylinder form. They were trimmed to the appropriate size for the nipple reconstruction. The rolled graft forms were then secured to the C- flap using interrupted 4-0 Monocryl on each side and then the right and left nipple- areolar reconstruction was completed by interdigitating the V flaps first on the right side then left side securing using interrupted 5-0 fast-absorbing gut full-thickness skin sutures and then the donor region for the flaps were closed by approximating the deep dermis using inverted interrupted 4-0 Monocryl. The skin closure was completed where necessary with interrupted and short running 5-0 fast-absorbing gut and the C- flap on each side was secured to the top of the nipple areolar construct using interrupted 5-0 fast-absorbing gut. Surgical nina cleansed with saline, dried. Postoperative bandages placed using bacitracin ointment, Adaptic, and then 4x4s placed around the nipple-areolar constructions with holes cut in the middle so as not to apply pressure followed by securing with Medipore tape. The patient was then awakened from her anesthetic, extubated, and transferred to the recovery room in good condition with stable vital signs. There were no complications. MMSHEL / IJN: [id number] /
== END 2017-11-04 12:15 | disposition home or self-care (01) ==
LOC: OR 07:48
PROVIDERS: ATTEND Plastic Surgery
DX: Z85.3 Personal history of malignant neoplasm of breast (principal); C50.919 Malignant neoplasm of unspecified site of unspecified female breast; Z90.13 Acquired absence of bilateral breasts and nipples; I10 Essential (primary) hypertension; E78.5 Hyperlipidemia, unspecified; Z79.811 Long term (current) use of aromatase inhibitors; Z79.899 Other long term (current) drug therapy; Z88.1 Allergy status to other antibiotic agents
CPT/HCPCS: 19350; 15777; C1763; J2250; J1100; J2405; J2001; J3010; J0690; J2370; J0330; J2704

== ENCOUNTER → 2019-05-20 | Outpatient (CLI) | payer MEDICARE ==
[2019-05-20 09:18] VITALS: BP 133/82; PULSE 61; RESP 18; TEMP 97.6
--- NOTE | 2019-05-20 10:30 | P.PN ---
Subjective Progress Note Date: 05/20/19 Principal diagnosis: Surveillance secondary to invasive left breast carcinoma, atypical lobular hyperplasia right breast [id number]- There is a 73-year-old white female status post bilateral mastectomy with subpectoral implant breast reconstruction performed in June 2016. This was for a T1 left breast invasive ductal carcinoma which also had atypical lobular hyperplasia and lobular carcinoma in situ. In the right breast she had extensive atypical lobular hyperplasia and lobular carcinoma in situ. Focal atypical ductal hyperplasia was also identified. The patient post procedure has been taking Arimidex. She has no problems related to the Arimidex. She was told that she would be on this for 5 years. She did not have any chemotherapy. She did not have any radiation therapy.She is doing well at [facility] time eithout any compmlications. Bone density was performed on 1240 18 this revealed osteopenia as indicated a T score values within the left hip. There is slightly increased risk for fracture and therapy to be considered. Family History: brother: pancreatic Hormonal History: menarche: 12 , breast fed: yes, age at first 24 menopause: 50 hormones: none, armidex for 3 years Medical History: negative Surgical History: Abdominoplasty Bilateral mastectomy with subpectoral implant reconstruction, left axillary node sentinel biopsy right groin node biopsy Social History smoke: none alcohol: wine, weekly drugs: none ROS: EENT: Wears glasses otherwise negative Lungs: Give Cardiac: Negative GI: Negative : Postmenopausal Musculoskeletal: Arthritis in knees Neurologic: Negative Psychiatric: negative allergies: Erythromycin Hematologic:none Objective - Vital Signs Vital signs: Vital Signs Temp 97.6 F 05/20/19 09:15 Pulse 61 05/20/19 09:15 Resp 18 05/20/19 09:15 BP 133/82 05/20/19 09:15 Pulse Ox 100 05/20/19 09:15 Intake & Output 05/19/19 05/20/19 05/20/19 18:59 06:59 18:59 Weight 60.328 kg - Exam BMI 22.8 - Constitutional General appearance: Present: average body habitus - EENT Eyes: Present: EOMI ENT: Present: hearing grossly normal - Neck Neck: Present: normal ROM - Respiratory Respiratory: bilateral: CTA - Cardiovascular Rhythm: regular Heart sounds: normal: S1, S2 - Gastrointestinal Gastrointestinal Comment(s): normal bowel sounds, no guarding or rebound General gastrointestinal: Present: soft - Integumentary Integumentary: Present: normal turgor - Musculoskeletal Musculoskeletal: Present: gait normal - Psychiatric Psychiatric: Present: A&O x's 3, appropriate affect, intact judgment & insight - Additional findings Additional findings: breast exam: Examination of the chest wall was performed. Patient has had bilateral mastectomies with subpectoral implant reconstruction Right chest wall incision clean and dry subpectoral implant in place no evidence of recurrent disease Right axilla: Shotty adenopathy non-worrisome, less than 1 cm Left chest wall: Subpectoral implant in place no evidence of recurrent disease Left axilla: No adenopathy of concern Assessment and Plan Assessment: Impression: 1. History of stage IA left breast cancer 2. Bilateral mastectomy with subpectoral implant reconstruction, SNB left 3. Shotty right axillary adenopathy to be followed closely. 4. Recent bone density showing osteopenia 5. Patient presently on arimidex to follow with medical oncology Plan: 1. Follow-up with medical oncology regarding her Arimidex and bone density findings 2. Follow up here in 6 months time for physician exam, (patient will be in [place]) 3. Repeat examination of the axilla in 6 months if the adenopathy appears to have increased in size we will do further evaluation 4. Patient is going to [place] next week she will see physician at 3 months to follow up on the axillary adenopathy if she notes any changes sooner she will see them sooner CC; DR. Peña
== END ==
LOC: WWCWWP 08:42
PROVIDERS: ATTEND Surgery
DX: Z53.9 Procedure and treatment not carried out, unspecified reason (principal)

== ENCOUNTER → 2019-11-10 | Outpatient (CLI) | payer MEDICARE ==
[2019-11-10 14:49] VITALS: BP 122/76; PULSE 65; RESP 16; TEMP 98
--- NOTE | 2019-11-10 15:11 | P.PN ---
Subjective Progress Note Date: 11/10/19 Principal diagnosis: Several secondary to invasive left breast cancer, atypical lobular hyperplasia right breast, T1 N0 M0 G2 ER positive [place] negative HER-2 negative; Stage IA There is a 73-year-old white female status post bilateral mastectomy with subpectoral implant breast reconstruction performed in June 2016. This was for a T1 left breast invasive ductal carcinoma which also had atypical lobular hyperplasia and lobular carcinoma in situ. In the right breast she had ex tensive atypical lobular hyperplasia and lobular carcinoma in situ. Focal atypical ductal hyperplasia was also identified. The patient post procedure has been taking Arimidex. She has no problems related to the Arimidex. She was told that she would be on this for 5 years. She did not have any chemotherapy. She did not have any radiation therapy.She is doing well at this time with out any complications. Bone density was performed on this revealed osteopenia as indicated a T score values within the left hip. There is slightly increased risk for fracture and therapy to be considered. She is taking calcium. She has no problems related to her chest wall at this time. Family History: brother: pancreatic Hormonal History: menarche: 12 , breast fed: yes, age at first 24 menopause: 50 hormones: none, arimidex for 3 1/2 years Medical History: left knee pain right foot stress fracture Surgical History: Abdominoplasty Bilateral mastectomy with subpectoral implant reconstruction, left axillary node sentinel biopsy right groin node biopsy Social History smoke: none alcohol: wine, weekly drugs: none ROS: EENT: Wears glasses otherwise negative Lungs: none Cardiac: Negative GI: Negative : Postmenopausal Musculoskeletal: Arthritis in knees, right foot stress fracture Neurologic: Negative Psychiatric: negative allergies: Erythromycin Hematologic:none Objective - Vital Signs Vital signs: Vital Signs Temp 98.0 F 11/10/19 14:33 Pulse 65 11/10/19 14:33 Resp 16 11/10/19 14:33 BP 122/76 11/10/19 14:33 Pulse Ox 97 11/10/19 14:33 Intake & Output 11/09/19 11/10/19 11/10/19 18:59 06:59 18:59 Weight 60.781 kg - Exam BMI 23 - Constitutional General appearance: Present: average body habitus - EENT Eyes: Present: EOMI ENT: Present: hearing grossly normal - Neck Neck: Present: normal ROM - Respiratory Respiratory: bilateral: CTA - Cardiovascular Rhythm: regular Heart sounds: normal: S1, S2 - Gastrointestinal General gastrointestinal: Present: normal bowel sounds, soft - Integumentary Integumentary: Present: normal turgor - Musculoskeletal Musculoskeletal: Present: gait normal - Psychiatric Psychiatric: Present: A&O x's 3, appropriate affect, intact judgment & insight - Additional findings Additional findings: breast exam: BRA 34 C inspection: No ptosis/well-healed scars from prior surgeries/nipples are tattooed on Palpation: Right breast: Well-healed scar from prior mastectomy and subpectoral implant placement no evidence of masses of concern Right axilla: Shotty adenopathy nothing of concern Left breast: Well-healed scar from prior mastectomy and subpectoral implant pl acement no masses of concern Left axilla: No adenopathy of concern Assessment and Plan Assessment: Impression: 1. No evidence of recurrent breast cancer 2. Well-healed scars bilaterally and chest wall 3. Shotty right axillary adenopathy non-worrisome 4. Osteopenia/right foot stress fracture 5. Patient on Arimidex Plan: 1. Patient is going to meet with medical oncology and primary care physician Dr. Perez regarding osteopenia/foot stress fracture/the fact that she is on a Rheumatrex 2. No evidence of recurrent breast cancer at this time continue close surveillance 3. Follow-up here in 6 months Cc: Dr. Peña encounter 20 minutes > 50% of time in planning and counselling Time with Patient: Less than 30
== END | disposition home or self-care (01) ==
LOC: WWCWWP 14:32
PROVIDERS: ATTEND Surgery
DX: Z53.9 Procedure and treatment not carried out, unspecified reason (principal)

== ENCOUNTER → 2020-10-25 | Outpatient (CLI) | payer MEDICARE ==
[2020-10-25 11:49] VITALS: BP 128/72; PULSE 89; RESP 18; TEMP 97.5
--- NOTE | 2020-10-25 12:02 | P.PN ---
Subjective Progress Note Date: 10/25/20 Principal diagnosis: Surveillance secondary to invasive left breast cancer stage IA/atypical lobular hyperplasia right breast Surveillance secondary to invasive left breast cancer, atypical lobular hyperplasia right breast, T1 N0 M0 G2 ER positive [place] negative HER-2 negative; Stage IA Carolyne is a 74-year-old white female status post bilateral mastectomy with subpectoral implant breast reconstruction performed in June 2016. This was for a T1 left breast invasive ductal carcinoma which also had atypical lobular hyperplasia and lobular carcinoma in situ. In the right breast she had extensive atypical lobular hyperplasia and lobular carcinoma in situ. Focal atypical ductal hyperplasia was also identified. The patient post procedure has been taking Arimidex. She has no problems related to the Arimidex. She is taking this under the direction of Dr. Castro. She was told that she would be on this for 5 years. She did not have any chemotherapy. She did not have any radiation therapy.She is doing well at this time with out any complications. She has no complaints related to [place] chest [place] [id number] this revealed osteopenia as indicated a T score values within the left hip. There is slightly increased risk for fracture and therapy to be considered. She is taking calcium. No reviewed [place] [id number]. She has another appointment with Dr. Castro in the near future. Family History: brother: pancreatic Hormonal History: menarche: 12 , breast fed: yes, age at first 24 menopause: 50 hormones: none, arimidex for 3 1/2 years Medical History: left knee pain right foot stress fracture Surgical History: Abdominoplasty Bilateral mastectomy with subpectoral implant reconstruction, left axillary node sentinel biopsy right groin node biopsy Social History smoke: none alcohol: wine, weekly drugs: none ROS: EENT: Wears glasses otherwise negative Lungs: none Cardiac: Negative GI: Negative : Postmenopausal Musculoskeletal: Arthritis in knees, right foot stress fracture Neurologic: Negative Psychiatric: negative allergies: Erythromycin Hematologic:none Objective - Vital Signs Vital signs: Vital Signs Temp 97.5 F L 10/25/20 11:47 Pulse 89 10/25/20 11:47 Resp 18 10/25/20 11:47 BP 128/72 10/25/20 11:47 Pulse Ox 98 10/25/20 11:47 Intake & Output 05/12/21 05/13/21 05/13/21 18:59 06:59 18:59 Weight 59.421 kg - Exam BMI 22.5 - Constitutional General appearance: Present: average body habitus - EENT Eyes: Present: EOMI ENT: Present: hearing grossly normal - Neck Neck: Present: normal ROM - Respiratory Respiratory: bilateral: CTA - Cardiovascular Rhythm: regular Heart sounds: normal: S1, S2 - Gastrointestinal General gastrointestinal: Present: soft - Integumentary Integumentary: Present: normal turgor - Musculoskeletal Musculoskeletal: Present: gait normal - Psychiatric Psychiatric: Present: A&O x's 3, appropriate affect, intact judgment & insight - Additional findings Additional findings: Breat exam: BRA: bilateral reconstruction/ wears a sports bra inspection: Bilateral breast reconstruction Palpation: Right chest wall: Well-healed reconstructed breast no evidence of any disease in the chest wall of concern Right axilla shotty right axillary adenopathy soft/freely mobile Left chest wall: Well-healed reconstructed breast no evidence of any disease in the chest wall Left axilla: No adenopathy of concern Of importance is the fact that the patient received the COVID vaccine in her right arm August 25. Assessment and Plan Assessment: Impression: left knee pain right foot stress fracture Patient status post bilateral mastectomy, left breast invasive cancer, right breast atypical lobular hyperplasia. No evidence of any recurrent disease on the chest wall Right axillary adenopathy possibly related to recent COVID vaccination Plan: 1. Right axillary ultrasound to evaluate adenopathy, and follow-up 2. Continue her limited index 3. Follow-up here in 6 months Cc: Dr. Peña
== END ==
LOC: WWCWWP 11:34
PROVIDERS: ATTEND Surgery
DX: C50.912 Malignant neoplasm of unspecified site of left female breast (principal); N60.91 Unspecified benign mammary dysplasia of right breast; M25.562 Pain in left knee; S92.901A Unspecified fracture of right foot, initial encounter for closed fracture; Z90.13 Acquired absence of bilateral breasts and nipples; Z88.1 Allergy status to other antibiotic agents

== ENCOUNTER → 2020-10-25 | Outpatient (CLI) | payer MEDICARE ==
--- NOTE | 2020-10-25 14:24 | USB ---
Reason for exam: clinical finding. History: Patient has history of breast cancer at age 70. Malignant MG pre op needle loc LT of the left breast, June 17, 2016. Malignant US biopsy breast VAD LT of the left breast, June 06, 2016. MG discontinued stereo core LT of the left breast, June 06, 2016. Physical Findings: Breast exam performed by Dr. Lilly. US Breast Axilla RT Right breast axilla ultrasound demonstrates a 1.0 x 0.6cm lymph node at the axilla and a 1.2 a 1.1cm lymph node at the axilla. These results were verbally communicated with the patient and result sheet given to the patient on 10/25/20. ASSESSMENT: Benign, BI-RAD 2 RECOMMENDATION: Clinical management of the right breast. Manage patient on a clinical basis.
== END | disposition home or self-care (01) ==
LOC: RADUSWWP 12:16
PROVIDERS: ATTEND Surgery
DX: R59.0 Localized enlarged lymph nodes (principal); Z85.3 Personal history of malignant neoplasm of breast

== ENCOUNTER → 2022-10-31 | Outpatient (CLI) | payer MEDICARE ==
[2022-10-31 10:42] VITALS: BP 131/77; PULSE 59; RESP 16; TEMP 97.6
--- NOTE | 2022-10-31 11:01 | P.PN ---
Subjective Progress Note Date: 10/31/22 Principal diagnosis: 2017 bilateral mastectomy with subpectoral implant reconstruction, left breast invasive ductal carcinoma stage IA, right breast lobular carcinoma in situ The patient is a 76-year-old white female status post bilateral mastectomy and subpectoral implant reconstruction in June 2016. This was performed for a stage IA invasive ductal left breast cancer. She was also noted to have atypical lobular hyperplasia and LCIS in the left breast. In the right breast she had extensive atypical lobular hyperplasia and lobular carcinoma in situ. Focal atypical ductal hyperplasia was also identified. The patient post procedure . For 5 years with a right mid ex. She is no longer taking this. She has no complaints related to her chest wall at this time. Family History: brother: pancreatic Hormonal History: menarche: 12 , breast fed: yes, age at first 24 menopause: 50 hormones: none, arimidex for 3 1/2 years Medical History: left knee pain right foot stress fracture Surgical History: Abdominoplasty Bilateral mastectomy with subpectoral implant reconstruction, left axillary node sentinel biopsy right groin node biopsy right eye stint placed fro glaucoma Social History smoke: none alcohol: wine, weekly drugs: none ROS: EENT: Wears glasses otherwise negative Lungs: none Cardiac: Negative GI: Negative : Postmenopausal Musculoskeletal: Arthritis in knees, right foot stress fracture Neurologic: Negative Psychiatric: negative allergies: Erythromycin Hematologic:none Objective - Vital Signs Vital signs: Vital Signs Temp 97.6 F 10/31/22 10:38 Pulse 59 L 10/31/22 10:38 Resp 16 10/31/22 10:38 BP 131/77 10/31/22 10:38 Pulse Ox 99 10/31/22 10:38 FiO2 Intake & Output 10/30/22 10/31/22 10/31/22 18:59 06:59 18:59 Weight 131 kg - Constitutional General appearance: Present: cooperative - EENT Eyes: Present: EOMI ENT: Present: hearing grossly normal - Neck Neck: Present: normal ROM - Respiratory Respiratory: bilateral: CTA - Cardiovascular Rhythm: regular Heart sounds: normal: S1, S2 - Integumentary Integumentary: Present: normal turgor - Musculoskeletal Musculoskeletal: Present: gait normal - Psychiatric Psychiatric: Present: A&O x's 3, appropriate affect, intact judgment & insight - Additional findings Additional findings: Breat exam: BRA: bilateral reconstruction/ wears a sports bra inspection: Bilateral breast reconstruction Palpation: Right chest wall: Well-healed reconstructed breast no evidence of any disease in the chest wall of concern Right axilla shotty right axillary adenopathy soft/freely mobile Left chest wall: Well-healed reconstructed breast no evidence of any disease in the chest wall Left axilla: Shotty adenopathy non-worrisome Assessment and Plan Assessment: Impression: left knee pain right foot stress fracture Patient status post bilateral mastectomy, left breast invasive cancer, right breast atypical lobular hyperplasia. No evidence of any recurrent disease on the chest wall Plan: 1. No evidence of any recurrent cancer 2. Patient has completed a limited axillary therapy 3. Follow-up in one year for evaluation 4. Follow-up sooner any questions or concerns Cc: Dr. Peña
== END ==
LOC: WWCWWP 10:29
PROVIDERS: ATTEND Surgery
DX: Z85.3 Personal history of malignant neoplasm of breast (principal); T84.012S Broken internal right knee prosthesis, sequela; Z88.1 Allergy status to other antibiotic agents

== ENCOUNTER → 2023-11-30 | Outpatient (CLI) | payer MEDICARE ==
[2023-11-30 12:24] VITALS: BP 117/71; PULSE 68; RESP 17; TEMP 98.6
--- NOTE | 2023-11-30 12:48 | P.PN ---
Subjective Progress Note Date: 11/30/23 Principal diagnosis: left breast invasive ductal cancer stage 1 11-30-23 Principal diagnosis: 2017 bilateral mastectomy with subpectoral implant reconstruction, left breast invasive ductal carcinoma stage IA, right breast lobular carcinoma in situ The patient is a 77-year-old white female status post bilateral mastectomy and subpectoral implant reconstruction in June 2016. This was performed for a stage IA invasive ductal left breast cancer. She was also noted to have atypical lobular hyperplasia and LCIS in the left breast. In the right breast she had extensive atypical lobular hyperplasia and lobular carcinoma in situ. Focal atypical ductal hyperplasia was also identified. The patient post procedure . 5 years arimidex. She is no longer taking this. She has no complaints related to her chest wall at this time. Family History: brother: pancreatic cancer Hormonal History: menarche: 12 , breast fed: yes, age at first 24 menopause: 50 hormones: none, arimidex for 3 1/2 years Medical History: left knee pain right foot stress fracture/related to arthritis Surgical History: Abdominoplasty Bilateral mastectomy with subpectoral implant reconstruction, left axillary node sentinel biopsy right groin node biopsy right eye stint placed for glaucoma Social History smoke: none alcohol: wine, weekly drugs: none ROS: EENT: Wears glasses otherwise negative Lungs: none Cardiac: Negative GI: Negative : Postmenopausal Musculoskeletal: Arthritis in knees, right foot stress fracture Neurologic: Negative Psychiatric: negative allergies: Erythromycin Hematologic:none Objective - Vital Signs Vital signs: Vital Signs Temp 98.6 F 11/30/23 12:22 Pulse 68 11/30/23 12:22 Resp 17 11/30/23 12:22 BP 117/71 11/30/23 12:22 Pulse Ox 97 11/30/23 12:22 FiO2 Intake & Output 11/29/23 11/30/23 11/30/23 18:59 06:59 18:59 Weight 58.967 kg - Constitutional General appearance: Present: cooperative - EENT Eyes: Present: EOMI ENT: Present: hearing grossly normal - Neck Neck: Present: normal ROM - Respiratory Respiratory: bilateral: CTA - Cardiovascular Heart sounds: normal: S1, S2 - Integumentary Integumentary: Present: normal turgor - Musculoskeletal Musculoskeletal: Present: gait normal - Psychiatric Psychiatric: Present: A&O x's 3, appropriate affect, intact judgment & insight - Additional findings Additional findings: Breat exam: BRA: bilateral reconstruction/ wears a sports bra inspection: Bilateral breast reconstruction Palpation: Right chest wall: Well-healed reconstructed breast no evidence of any disease in the chest wall of concern Right axilla shotty right axillary adenopathy soft/freely mobile Left chest wall: Well-healed reconstructed breast no evidence of any disease in the chest wall Left axilla: Shotty adenopathy non-worrisome Assessment and Plan Assessment: Impression: right foot stress fracture, healed Patient status post bilateral mastectomy, left breast invasive cancer, right breast atypical lobular hyperplasia. No evidence of any recurrent disease on the chest wall Plan: 1. No evidence of any recurrent cancer 2. Follow-up in one year for evaluation 3. Follow-up sooner any questions or concerns Cc: Dr. Peña
== END ==
LOC: WWCWWP 12:13
PROVIDERS: ATTEND Surgery
DX: C50.912 Malignant neoplasm of unspecified site of left female breast (principal); N60.91 Unspecified benign mammary dysplasia of right breast; N60.92 Unspecified benign mammary dysplasia of left breast; M84.374A Stress fracture, right foot, initial encounter for fracture; Z90.13 Acquired absence of bilateral breasts and nipples; Z88.1 Allergy status to other antibiotic agents

== ENCOUNTER → 2024-11-17 | Outpatient (CLI) | payer MEDICARE ==
[2024-11-17 09:51] VITALS: BP 116/73; PULSE 92; RESP 16; TEMP 97.8
--- NOTE | 2024-11-17 10:02 | P.PN ---
Subjective Progress Note Date: 11/17/24 Principal diagnosis: left breast invasive ductal cancer stage 1 11-16-24 Principal diagnosis: left breast invasive ductal cancer stage 1 2016 bilateral mastectomy with subpectoral implant reconstruction, left breast invasive ductal carcinoma stage IA, right breast lobular carcinoma in situ The patient is a 78-year-old white female status post bilateral mastectomy and subpectoral implant reconstruction in June 2016. This was performed for a stage IA invasive ductal left breast cancer. She was also noted to have atypical lobular hyperplasia and LCIS in the left breast. In the right breast she had extensive atypical lobular hyperplasia and lobular carcinoma in situ. Focal atypical ductal hyperplasia was also identified. The patient post procedure . 5 years arimidex. She is no longer taking this. She has no complaints related to her chest wall at this time. She has noted that there is a suture extruding from the nipple area on the left chest wall. Family History: brother: pancreatic cancer Hormonal History: menarche: 12 , breast fed: yes, age at first 24 menopause: 50 hormones: none, arimidex for 3 1/2 years Medical History: left knee pain right foot stress fracture/related to arthritis Surgical History: Abdominoplasty Bilateral mastectomy with subpectoral implant reconstruction, left axillary node sentinel biopsy right groin node biopsy right eye stint placed for glaucoma right knee replacement 2024 Social History smoke: none alcohol: wine, weekly drugs: none ROS: EENT: Wears glasses otherwise negative Lungs: none Cardiac: Negative GI: Negative : Postmenopausal Musculoskeletal: Arthritis in knees, right foot stress fracture Neurologic: Negative Psychiatric: negative allergies: Erythromycin Hematologic:none Objective - Constitutional General appearance: Present: cooperative - EENT Eyes: Present: EOMI ENT: Present: hearing grossly normal - Neck Neck: Present: normal ROM - Respiratory Respiratory: bilateral: CTA - Cardiovascular Rhythm: regular Heart sounds: normal: S1, S2 - Integumentary Integumentary: Present: normal turgor - Musculoskeletal Musculoskeletal: Present: gait normal - Psychiatric Psychiatric: Present: A&O x's 3, appropriate affect, intact judgment & insight - Additional findings Additional findings: Breat exam: BRA: bilateral reconstruction/ wears a sports bra inspection: Bilateral breast reconstruction Palpation: Right chest wall: Well-healed reconstructed breast no evidence of any disease in the chest wall of concern Right axilla shotty right axillary adenopathy soft/freely mobile Left chest wall: Well-healed reconstructed breast no evidence of any disease in the chest wall, suture is present extruding it from the nipple site Left axilla: Shotty adenopathy non-worrisome Assessment and Plan Assessment: Impression: right foot stress fracture, healed Patient status post bilateral mastectomy, left breast invasive cancer, right breast atypical lobular hyperplasia. No evidence of any recurrent disease on the chest wall Suture present extruding from the nipple site on the left Plan: 1. No evidence of any recurrent cancer 2. Follow-up in one year for evaluation 3. Follow-up sooner any questions or concerns 4. Removal of suture left nipple site Following consent the area of concern with the suture was grasped using a forceps and this was cut near the area of the skin. Approximately a 6 mm nonabsorbable suture strand was removed. The patient tolerated this without difficulty. Cc: Dr. Peña
== END ==
LOC: WWCWWP 09:32
PROVIDERS: ATTEND Surgery
DX: M84.374A Stress fracture, right foot, initial encounter for fracture (principal); C50.912 Malignant neoplasm of unspecified site of left female breast; N60.91 Unspecified benign mammary dysplasia of right breast; N60.92 Unspecified benign mammary dysplasia of left breast; Z88.1 Allergy status to other antibiotic agents